=== PATIENT | male | born 1965 ===

== ENCOUNTER 2016-08-09 09:51 | Emergency (ER) | payer OTHER ==
[2016-08-09 09:56] VITALS: BP 150/98; PULSE 90; RESP 20; TEMP 97.6; O2SAT 98
--- NOTE | 2016-08-09 10:30 | ED PDOC ---
Lower Extremity Pain/Injury Time Seen by Provider: 08/09/16 10:15 Chief Complaint (Nursing): Lower Extremity Problem/Injury Chief Complaint (Provider): knee pain History Per: Patient, Food Cart Attendant (JOSE Quintero at bedside for danish translation) Additional Complaint(s): 51-year-old male with history of gout presents to emergency department with painful left knee starting 4 days ago. He denies any trauma or injury. He states he has had gout flareups to both knees in the past. Patient has been taking ibuprofen which has not helped the pain. He is able to walk and bear weight but has pain when doing so. No fever or chills. Patient states he used to take allopurinol daily but has not done so in over 2 years since he moved here from [facility]. Past Medical History Reviewed: Historical Data, Nursing Documentation, Vital Signs Vital Signs: Last Vital Signs Temp 97.6 F 08/09/16 09:54 Pulse 90 08/09/16 09:54 Resp 20 08/09/16 09:54 BP 150/98 H 08/09/16 09:54 Pulse Ox 98 08/09/16 09:54 - Medical History Other PMH: gout - Surgical History Surgical History: Tonsillectomy - Family History Family History: States: No Known Family Hx - Living Arrangements Living Arrangements: With Family - Social History Current smoker - smoking cessation education provided: No Alcohol: None Drugs: Denies - Home Medications Home Medications: Ambulatory Orders Medication Instructions Recorded Indomethacin [Indocin] 25 mg PO TID PRN #30 cap 08/09/16 traMADol [Ultram] 50 mg PO TID PRN #15 tab 08/09/16 - Allergies Allergies/Adverse Reactions: Allergies Allergy/AdvReac Type Severity Reaction Status Date / Time No Known Allergies Allergy Verified 08/09/16 10:14 Wells Criteria for PE - Wells Criteria for Pulmonary Embolism Clinical Signs and Symptoms of DVT: No P.E is #1 Diagnosis, or Equally Likely: No Heart Rate >100: No Immobilization at least 3 days;Surgery previous 4 weeks: No Previous, objectively diagnosed PE or DVT: No Hemoptysis: No Malignancy w/treatment within 6 months, or palliative: No Total Score: 0 Review of Systems ROS Statement: Except As Marked, All Systems Reviewed And Found Negative Constitutional: Negative for: Fever, Chills Musculoskeletal: Positive for: Other (left knee pain) Physical Exam - Reviewed Nursing Documentation Reviewed: Yes Vital Signs Reviewed: Yes - Physical Exam Appears: Positive for: Well, Non-toxic, No Acute Distress Skin: Negative for: Rash Extremity: Positive for: Other (Mild tenderness lateral aspect of left knee with full range of motion, no calf swelling or tenderness, no warmth or erythema to left knee) Neurologic/Psych: Positive for: Alert, Oriented - ECG O2 Sat by Pulse Oximetry: 98 Pulse Ox Interpretation: Normal Medical Decision Making Medical Decision Makin51 year old male with gout flare up Plan: Toradol IM PO tramadol Patient states the pain is improved after medications were given in ED. He declined brace to left knee, crutches declined. Patient given prescriptions for Indocin and tramadol. He was referred to clinic for follow up. Disposition - Clinical Impression Clinical Impression: Gout attack, Knee pain - Patient ED Disposition Is Patient to be Admitted: No Counseled Patient/Family Regarding: Diagnosis, Need For Followup, Rx Given - Disposition Referrals: [facility] [Outside] Disposition: Routine/Home Disposition Time: 10:51 Condition: STABLE Additional Instructions: Take prescription meds as directed as needed for pain. Follow-up with clinic in 2-3 days. Prescriptions: Indomethacin [Indocin] 25 mg PO TID PRN #30 cap PRN Reason: Pain, Moderate (4-7) traMADol [Ultram] 50 mg PO TID PRN #15 tab PRN Reason: Pain, Moderate (4-7) Instructions: Gout (ED), Knee Pain (ED) Print Language: SLOVAK
== END 2016-08-09 11:33 | disposition home or self-care (01) ==
LOC: H.ER 09:51
DX: M25.569 Pain in unspecified knee (principal); M10.9 Gout, unspecified

== ENCOUNTER 2018-06-30 14:14 | Emergency (ER) | payer OTHER ==
[2018-06-30 14:48] VITALS: TEMP 97.9
--- NOTE | 2018-06-30 15:57 | ED PDOC ---
Lower Extremity Pain/Injury Time Seen by Provider: 06/30/18 14:45 Chief Complaint (Nursing): Lower Extremity Problem/Injury Chief Complaint (Provider): Lower Extremity Problem/Injury History Per: Patient, Disability Specialist ([employer] #[id number]) History/Exam Limitations: no limitations Onset/Duration Of Symptoms: Days (x 5) Current Symptoms Are (Timing): Still Present Additional Complaint(s): 53 year old male with a history of gout presents to the ED with bilateral foot pain, onset five days ago. pt resport he takes advil at home wtih some relief. Patient reports a prior visit to this hospital where he was given 100 mg of Diclofenac with vast improvement of symptoms. he is requesting that same shot. He has not followed up since. however has a history of gout and that is what this feels like for him. Denies trauma to feet and other complaints. no fever vomiting or other concerns PMD: none Past Medical History Reviewed: Historical Data, Nursing Documentation, Vital Signs Vital Signs: Last Vital Signs Temp 97.9 F 06/30/18 14:45 Pulse 72 06/30/18 15:07 Resp 16 06/30/18 14:45 BP 151/104 H 06/30/18 15:07 Pulse Ox 99 06/30/18 15:07 - Medical History Other PMH: gout - Surgical History Surgical History: Tonsillectomy Other surgeries: vasectomy - Family History Family History: States: Unknown Family Hx - Allergies Allergies/Adverse Reactions: Allergies Allergy/AdvReac Type Severity Reaction Status Date / Time No Known Allergies Allergy Verified 06/30/18 14:44 Review of Systems ROS Statement: Except As Marked, All Systems Reviewed And Found Negative Constitutional: Negative for: Fever Musculoskeletal: Positive for: Foot Pain (bilateral) Physical Exam - Reviewed Nursing Documentation Reviewed: Yes Vital Signs Reviewed: Yes - Physical Exam Appears: Positive for: Non-toxic, No Acute Distress Head Exam: Positive for: ATRAUMATIC, NORMAL INSPECTION, NORMOCEPHALIC Skin: Positive for: Normal Color, Warm, Dry Eye Exam: Positive for: EOMI, Normal appearance, PERRL Cardiovascular/Chest: Positive for: Regular Rate, Rhythm. Negative for: Murmur Respiratory: Positive for: Normal Breath Sounds. Negative for: Respiratory Distress Pulses-Dorsalis Pedis (L): 2+ Pulses-Dorsalis Pedis (R): 2+ Gastrointestinal/Abdominal: Positive for: Soft Extremity: Positive for: Normal ROM, Tenderness (diffuse tenderness and non- pitting edema to bilateral feet), Capillary Refill (< 2 seconds), Swelling (mild of both feet). Negative for: Calf Tenderness, Other (redness or warmth) Neurologic/Psych: Positive for: Alert, Oriented (x 3). Negative for: Motor/Sensory Deficits - ECG O2 Sat by Pulse Oximetry: 99 (RA) Pulse Ox Interpretation: Normal Medical Decision Making Medical Decision Makin:04 Impression: bilateral foot pain Initial Plan: --Toradol 30 mg IM 17:45 Patient reports complete resolution of symptoms after meds. Will revitalize. Pending normal blood pressure, patient will be sent home. 18:26 Blood pressure is now in normal range.p Patient is stable for discharge and will be referred to [facility] for treatment of gout. Advised to take Motrin at home if pain returns and to avoid alcohol. Scribe Attestation: Documented by Laura De La Fuente acting as a scribe for Lorrie Dave MD Provider Scribe Attestation: All medical record entries made by the Scribe were at my direction and personally dictated by me. I have reviewed the chart and agree that the record accurately reflects my personal performance of the history, physical exam, medical decision making, and the department course for this patient. I have also personally directed, reviewed, and agree with the discharge instructions and disposition. Disposition - Clinical Impression Clinical Impression: Gout attack - Patient ED Disposition Is Patient to be Admitted: No - Disposition Referrals: [facility] [Outside] [facility] [Outside] Disposition: Routine/Home Disposition Time: 18:30 Condition: IMPROVED Additional Instructions: follow up with the [facility] as soon as possible return to the ED with any worsening or concerning symptoms Instructions: Gout (DC) Forms: [facility] ([place] Islander), [facility] (Chinese) Print Language: BRITISH
[2018-06-30 18:41] VITALS: BP 135/82; PULSE 67; RESP 18
[2018-07-01 23:52] VITALS: O2SAT 99
== END 2018-06-30 18:28 | disposition home or self-care (01) ==
LOC: H.ER 14:14
DX: M1A.9XX0 Chronic gout, unspecified, without tophus (tophi) (principal)
CPT/HCPCS: 96372; 99283; J1885

== ENCOUNTER 2018-08-16 09:24 | Emergency (ER) | payer OTHER ==
[2018-08-16 09:55] VITALS: RESP 18; TEMP 98.2; O2SAT 98
--- NOTE | 2018-08-16 11:40 | ED PDOC ---
Lower Extremity Pain/Injury Time Seen by Provider: 08/16/18 11:41 Chief Complaint (Nursing): Lower Extremity Problem/Injury Chief Complaint (Provider): knee pain History Per: Patient History/Exam Limitations: no limitations Onset/Duration Of Symptoms: Days Current Symptoms Are (Timing): Still Present Severity: Moderate Pain Scale Rating Of: 7 Additional History Per: Patient Additional Complaint(s): 53 y/o male presents to the ED c/o left knee pain and swelling since Thursday. 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 Patient states Thursday he woke up and knee was swollen and painful. He states having gout and pain is similar to gout flare up. Last flare up was in 06/2018 to bilat feet. He reports he has been taking tylenol with last dose this am with minimal relief. He report she was taking alluprinol while in [facility] but stopped because it was effecting his kidney function. Patient reports pain is worse on ambulation and movement. Patient denies fever. Past Medical History Reviewed: Historical Data, Nursing Documentation, Vital Signs Vital Signs: Last Vital Signs Temp 98.2 F 08/16/18 09:51 Pulse 71 08/16/18 09:51 Resp 18 08/16/18 09:51 BP 162/107 H 08/16/18 09:51 Pulse Ox 98 08/16/18 09:51 - Medical History Other PMH: gout - Surgical History Surgical History: Tonsillectomy - Family History Family History: States: Unknown Family Hx - Social History Alcohol: None Drugs: Denies - Home Medications Home Medications: Ambulatory Orders Medication Instructions Recorded Indomethacin 50 mg PO TID PRN #30 capsule 08/16/18 traMADol [Ultram] 50 mg PO Q6H PRN #15 tab 08/16/18 - Allergies Allergies/Adverse Reactions: Allergies Allergy/AdvReac Type Severity Reaction Status Date / Time No Known Allergies Allergy Verified 08/16/18 09:50 Review of Systems ROS Statement: Except As Marked, All Systems Reviewed And Found Negative Constitutional: Negative for: Fever, Chills, Weakness, Malaise Musculoskeletal: Positive for: Leg Pain (left knee pain and swelling ) Neurological: Negative for: Weakness Physical Exam - Reviewed Nursing Documentation Reviewed: Yes Vital Signs Reviewed: Yes - Physical Exam Appears: Positive for: Well, Non-toxic, No Acute Distress Head Exam: Positive for: ATRAUMATIC, NORMAL INSPECTION, NORMOCEPHALIC Skin: Positive for: Normal Color, Warm, DRY Eye Exam: Positive for: EOMI, Normal appearance, PERRL ENT: Positive for: Normal ENT Inspection Neck: Positive for: Normal, Painless ROM Cardiovascular/Chest: Positive for: Regular Rate, Rhythm Respiratory: Positive for: CNT, Normal Breath Sounds Gastrointestinal/Abdominal: Positive for: Normal Exam, Soft Back: Positive for: Normal Inspection Extremity: Positive for: Normal ROM, Tenderness, Capillary Refill (<2 sec cap refill ), Swelling (left knee ), Other (joint is warm to touch. neg for redness. ). Negative for: Calf Tenderness, Deformity DTR - Knee (R): 2+ DTR - Knee (L): 2+ Neurological/Psych: Positive for: Awake, Alert, Normal Tone, Oriented - ECG O2 Sat by Pulse Oximetry: 98 Medical Decision Making Medical Decision Making: --Toradol IM Indomethacin PO pain 4-7 tramadol PO for severe pain 8-10 Patient has hisory of gout, patient states typical flare up. No further work-up needed in ED. Patient given rx for Indomethacin and Tramadol, Parth bandage to left knee. patient refused crutches. Noted B/P elevated, asymptomatic, patient advised to follow-up in clinic for HTN. given return to ed precautions. patient states understanding. Disposition - Clinical Impression Clinical Impression: Gout attack - Patient ED Disposition Is Patient to be Admitted: No Counseled Patient/Family Regarding: Diagnosis, Rx Given - Disposition Referrals: [facility] [Outside] Disposition: Routine/Home Disposition Time: 11:30 Condition: GOOD Prescriptions: Indomethacin 50 mg PO TID PRN #30 capsule PRN Reason: Pain, Moderate (4-7) traMADol [Ultram] 50 mg PO Q6H PRN #15 tab PRN Reason: Pain, Severe (8-10) Instructions: Gout, Lifestyle Changes to Manage Gout Forms: [facility] (Italian) Print Language: MALTESE - POA Present On Arrival: None
[2018-08-16 12:01] VITALS: BP 144/78; PULSE 86
== END 2018-08-16 12:03 | disposition home or self-care (01) ==
LOC: H.ER 09:24
DX: M10.9 Gout, unspecified (principal)
CPT/HCPCS: 96372; 99284; J1885